=== PATIENT | female | born 1975 | race Caucasian/White ===

== ENCOUNTER → 2024-05-24 15:42 | Outpatient (REF) | payer OTHER, SELFPAY | LOC: WDC 15:42 | PROVIDERS: ATTENDING PHYSICIAN Obstetrics & Gynecology; FAMILY PHYSICIAN Physician Assistant Medical | DX: Z12.31 Encounter for screening mammogram for malignant neoplasm of breast (principal) | CPT/HCPCS: 77063; 77067 ==

== ENCOUNTER → 2024-12-08 14:01 | Outpatient (REF) | payer OTHER, SELFPAY | LOC: HWRAD 14:01 | PROVIDERS: ATTENDING PHYSICIAN Obstetrics & Gynecology; FAMILY PHYSICIAN Physician Assistant Medical | DX: N93.9 Abnormal uterine and vaginal bleeding, unspecified (principal) | CPT/HCPCS: 76830; 76856 ==

== ENCOUNTER 2025-04-11 06:23 | Day surgery (SDC) | payer OTHER, SELFPAY ==
[2025-04-11] VITALS (9 sets, daily range): BP systolic 99–114; BP diastolic 57–93; BMI 25.7
[2025-04-11] MEDS: NORMOSOL-R/PLASMALYTE-A 1000 IV (10:49)
--- NOTE | 2025-04-11 13:24 | PTCARENOTE ---
pt bladder instilled with 300 cc sterile water, then hodges dc'd at 1240
== END 2025-04-11 14:10 | disposition home or self-care (01) ==
LOC: SDS 06:23
PROVIDERS: ATTENDING PHYSICIAN Obstetrics & Gynecology
DX: N39.3 Stress incontinence (female) (male) (principal); N36.41 Hypermobility of urethra
CPT/HCPCS: 57288; C1771